=== PATIENT | female | born 1975 | race Two or more races ===

== ENCOUNTER 2022-11-18 14:58 | Emergency (ER) | payer MEDICAID ==
[2022-11-18 15:05] VITALS: BP 138/87; PULSE 115; RESP 20; TEMP 98
[2022-11-18] MEDS ORDERED: DEXAMETHASONE SOD PHOSPHATE 4 MG/ML 1 ML VIAL IM STA (15:34)
[2022-11-18] MEDS ORDERED: DOXYCYCLINE 100 MG CAP PO STA (15:34)
--- NOTE | 2022-11-18 15:37 | ED ---
General Adult HPI - General Chief complaint: Upper Respiratory Infection Stated complaint: ENT Time Seen by Provider: 11/18/22 15:18 Source: patient, RN notes reviewed, old records reviewed Mode of arrival: ambulatory Limitations: no limitations - History of Present Illness Initial comments: Patient is a 47-year-old female with history of chronic sinus infections presents emergency department concern for another sinus infection. Has been having symptoms for 3 weeks. Has left-sided facial fullness, subjective intermittent fevers, ear pain, tooth pain over the left side of her face. Has some nasal discharge as well. Denies sore throat. Denies cough. Denies chest pain. Denies abdominal pain, nausea, vomiting. Is seeking therapy as she typic ally requires antibiotics when it gets like this she states. His no other acute complaints at this time. - Related Data Previous Rx's Medication Instructions Recorded Doxycycline Hyclate 100 mg PO BID 10 Days #20 cap 11/18/22 Allergies Allergy/AdvReac Type Severity Reaction Status Date / Time codeine Allergy Rash/Hives Verified 11/18/22 15:03 Latex, Natural Rubber Allergy Anaphylaxis Verified 11/18/22 15:03 Penicillins Allergy Anaphylaxis Verified 11/18/22 15:03 Review of Systems ROS Statement: Those systems with pertinent positive or pertinent negative responses have been documented in the HPI. Review of Systems: CONST: Denies fever EYES: Denies blurry vision ENT: Endorses nasal congestion C/V: Denies Chest pain RESP: Denies shortness of breath GI: Denies abdominal pain : Denies dysuria SKIN: Denies rash. MSK: Denies joint pain. NEURO: Denies headache ROS Other: All systems not noted in ROS Statement are negative. 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 HEAD: Normal with no signs of head trauma. EYES: EOMI. PERRLA, conjunctiva normal, pupils 3 mm and equal bilaterally. ENT: Hearing grossly intact. Minimal sinus symptoms to palpation of the left maxilla sinus. RESPIRATORY: No respiratory distress. Clear breath sounds bilaterally. C/V: Regular rate and rhythm. ABD: Abdomen is nondistended. EXT: No obvious deformity. SKIN: No rashes or lesions observed on exposed skin. NEURO: Alert and oriented. Limitations: no limitations Course Vital Signs 11/18/22 14:59 Temperature 98.0 F Pulse Rate 115 H Respiratory 20 Rate Blood Pressure 138/87 O2 Sat by Pulse 97 Oximetry Medical Decision Making - Medical Decision Making Was pt. sent in by a medical professional or institution (, TRAE, DRAPERY ESTIMATOR, urgent care, hospital, or senior care...) When possible be specific @ -No Did you speak to anyone other than the patient for history (EMS, parent, family, police, friend...)? What history was obtained from this source @ -No Did you review nursing and triage notes (agree or disagree)? Why? @ -I reviewed and agree with nursing and triage notes Were old charts reviewed (outside hosp., previous admission, EMS record, old EKG, old radiological studies, urgent care reports/EKG's, senior care records)? Report findings @ -No old charts were reviewed Differential Diagnosis (chest pain, altered mental status, abdominal pain women, abdominal pain men, vaginal bleeding, weakness, fever, dyspnea, syncope, headache, dizziness, GI bleed, back pain, seizure, CVA, palpatations, mental health, musculoskeletal)? @ -Sinus infection, viral URI, this list is not all inclusive. EKG interpreted by me (3pts min.). @ -None done X-rays interpreted by me (1pt min.). @ -None done CT interpreted by me (1pt min.). @ -None done U/S interpreted by me (1pt. min.). @ -None done What testing was considered but not performed or refused? (CT, X-rays, U/S, labs)? Why? @ -I offered chest x-ray, however patient is having no cough or chest discomfort. She refuses at this time. What meds were considered but not given or refused? Why? @ -None Did you discuss the management of the patient with other professionals (professionals i.e. TRAE Mcdowell, DRAPERY ESTIMATOR, lab, RT, psych nurse, elementary school social worker, plate glass grinder, teacher, [employer] revenue officer, case technician)? Give summary @ -No Was smoking cessation discussed for >3mins.? @ -No Was critical care preformed (if so, how long)? @ -No Were there social determinants of health that impacted care today? How? (Homelessness, low income, unemployed, alcoholism, drug addiction, transportation, low edu. Level, literacy, decrease access to med. care, shelter, rehab)? @ -No Was there de-escalation of care discussed even if they declined (Discuss DNR or withdrawal of care, Hospice)? DNR status @ -No What co-morbidities impacted this encounter? (DM, HTN, Smoking, COPD, CAD, Cancer, CVA, ARF, Chemo, Hep., AIDS, mental health diagnosis, sleep apnea, morbid obesity)? @ -None Was patient admitted / discharged? Hospital course, mention meds given and route, prescriptions, significant lab abnormalities, going to OR and other pertinent info. @ -Based on the patient's presentation and physical exam, appears she is having a sinus infection. 3 weeks of symptoms. I did offer Covid testing as well as chest x-ray however patient declines at this time. We will start the patient on oral antibiotics for a sinus infection, doxycycline. She also receive a one- time dose of Decadron here in the department. She was in agreement this plan. Vital signs otherwise are within acceptable limits. She was discharged home at this time. Strict return precautions discussed. I will provide the patient with a prescription for doxycycline. I instructed the patient to follow up with their PCP in the next 1-3 days. I provided contact information for follow up with ENT. I explained that the patient should return to the emergency department if they experience any worsening symptoms. Strict return precautions were discussed with the patient. The patient expressed understanding of these instructions. I answered all questions that the patient had. The patient was discharged home in good condition with their prescriptions and follow up information. Undiagnosed new problem with uncertain prognosis? @ -No Drug Therapy requiring intensive monitoring for toxicity (Heparin, Nitro, Insulin, Cardizem)? @ -No Were any procedures done? @ -No Diagnosis/symptom? @ -Sinus infection Acute, or Chronic, or Acute on Chronic? @ -Acute Uncomplicated (without systemic symptoms) or Complicated (systemic symptoms)? @ -Uncomplicated Side effects of treatment? @ -No Exacerbation, Progression, or Severe Exacerbation? @ -No Poses a threat to life or bodily function? How? (Chest pain, USA, MS, pneumonia, PE, COPD, DKA, ARF, appy, cholecystitis, CVA, Diverticulitis, Homicidal, Suicidal, threat to staff... and all critical care pts) @ -No Disposition Clinical Impression: Sinusitis Disposition: HOME SELF-CARE Condition: Good Instructions (If sedation given, give patient instructions): Sinusitis (ED) Prescriptions: Doxycycline Hyclate 100 mg PO BID 10 Days #20 cap Is patient prescribed a controlled substance at d/c from ED?: No Referrals: None,Stated [Primary Care Provider] - 1-2 days Noé Ramsay DO [Doctor of Osteopathic Medicine] - 1-2 days Time of Disposition: 15:35
== END 2022-11-18 15:57 | disposition home or self-care (01) ==
LOC: EC 14:58
DX: J32.9 Chronic sinusitis, unspecified (principal); Z87.891 Personal history of nicotine dependence; Z88.5 Allergy status to narcotic agent; Z88.0 Allergy status to penicillin; Z91.040 Latex allergy status
CPT/HCPCS: 99283; 96372; J1100

== ENCOUNTER 2022-12-16 14:09 | Emergency (ER) | payer OTHER, MEDICAID ==
[2022-12-16 14:22] VITALS: RESP 18
[2022-12-16] MEDS ORDERED: KETOROLAC 15 MG/ML 1 ML VIAL IM STA (14:33)
[2022-12-16] MEDS ORDERED: IBUPROFEN 600 MG STARTER PACK 4 TAB BTL PO STA (14:41)
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
[2022-12-16 16:36] VITALS: BP 153/94; PULSE 89; TEMP 98
== END 2022-12-16 16:36 | disposition home or self-care (01) ==
LOC: EC 14:09
DX: S61.051A Open bite of right thumb without damage to nail, initial encounter (principal); Z87.891 Personal history of nicotine dependence; Z88.0 Allergy status to penicillin; Z88.5 Allergy status to narcotic agent; Z91.040 Latex allergy status; Y04.8XXA Assault by other bodily force, initial encounter
CPT/HCPCS: 72125; 70450; 99284; 96372; J1885

== ENCOUNTER 2023-01-07 17:58 | Emergency (ER) | payer MEDICAID, OTHER ==
--- NOTE | 2023-01-07 18:34 | ED ---
Female Urogenital HPI - General Source: patient Mode of arrival: ambulatory Limitations: no limitations <Moises Coronado - Last Filed: 01/07/23 18:34> - History of Present Illness MD Complaint: other Onset/Timin -: hour(s) Location: RLQ Radiation: L flank, R flank Severity: severe Quality: aching Consistency: constant Improves with: none Worsens with: none Associated Symptoms: nausea/vomiting, fever/chills, loss of appetite <Carlos Youssef - Last Filed: 01/08/23 09:00> - General Stated complaint: UTI Time Seen by Provider: 01/07/23 18:34 - History of Present Illness Initial comments: 47-year-old female presenting with chief complaint of right-sided flank pain which wraps around the abdomen. Admits to dysuria and difficulty urinating. (Moises Coronado) This patient is 47-year-old woman presenting with lower abdominal pain. She states it's probably greater on the right side and also goes to her back. She states that she's had similar symptoms related to endometriosis, however this is more severe. She is also had pain in that location sometimes associated with kidney infection. She gives history of horseshoe kidney. She has not had definite fever though the pain has been intense enough that she has broken into a sweat. She has had some associated nausea. She states there may be some urinary hesitation. No hematuria. (Carlos Youssef) - Related Data Home Medications Medication Instructions Recorded Confirmed LORazepam [Ativan] 0.5 mg PO DAILY 12/16/22 12/16/22 QUEtiapine FUMARATE [SEROquel] 25 mg PO DAILY 12/16/22 12/16/22 Previous Rx's Medication Instructions Recorded Moxifloxacin HCl [Avelox] 400 mg PO DAILY 7 Days #7 tab 12/16/22 Ondansetron Odt [Zofran ODT] 4 mg PO Q8HR PRN #10 tab 01/08/23 traMADol HCl [Ultram] 50 mg PO Q6H PRN #20 tab 01/08/23 Allergies Allergy/AdvReac Type Severity Reaction Status Date / Time codeine Allergy Rash/Hives Verified 01/07/23 18:35 Latex, Natural Rubber Allergy Anaphylaxis Verified 01/07/23 18:35 Penicillins Allergy Anaphylaxis Verified 01/07/23 18:35 Review of Systems ROS Other: All systems not noted in ROS Statement are negative. <Moises Coronado - Last Filed: 01/07/23 18:34> ROS Other: All systems not noted in ROS Statement are negative. Constitutional: Reports: chills Respiratory: Denies: cough, dyspnea Cardiovascular: Denies: chest pain, palpitations, edema, syncope Gastrointestinal: Reports: abdominal pain, nausea, vomiting. Denies: diarrhea, constipation, melena, hematochezia Genitourinary: Reports: frequency. Denies: dysuria, hematuria Musculoskeletal: Reports: back pain Skin: Denies: rash Neurological: Denies: headache, weakness, numbness <Carlos Youssef - Last Filed: 01/08/23 09:00> ROS Statement: Those systems with pertinent positive or pertinent negative responses have been documented in the HPI. 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 History of Any Multi-Drug Resistant Organisms: None Reported Additional Past Surgical History / Comment(s): kidney surgery Past Psychological History: No Psychological Hx Reported Smoking Status: Former smoker Past Alcohol Use History: None Reported Past Drug Use History: None Reported <CoronadoBarbiecarla - Last Filed: 01/07/23 18:34> General Exam <Moises Coronado - Last Filed: 01/07/23 18:34> General appearance: alert, in no apparent distress Head exam: Present: atraumatic, normocephalic Eye exam: Present: normal appearance. Absent: scleral icterus, conjunctival injection Neck exam: Present: normal inspection Respiratory exam: Present: normal lung sounds bilaterally. Absent: respiratory distress, wheezes, rales, rhonchi, stridor Cardiovascular Exam: Present: regular rate, normal rhythm, normal heart sounds. Absent: systolic murmur, diastolic murmur, rubs, gallop GI/Abdominal exam: Present: soft, tenderness. Absent: distended, guarding, rebound, rigid, mass, pulsatile mass, hernia Extremities exam: Present: normal inspection, normal capillary refill. Absent: pedal edema, calf tenderness Back exam: Present: normal inspection, CVA tenderness (R) Neurological exam: Present: alert Skin exam: Present: warm, dry, intact, normal color, diaphoretic. Absent: rash <Carlos Youssef - Last Filed: 01/08/23 09:00> - General Exam Comments Initial Comments: Visual Physical Exam Vital signs reviewed General: Well-appearing, nontoxic, no acute distress. Head: Normocephalic, atraumatic Eyes: PERRLA, EOMI ENT: Airway patent Chest: Nonlabored breathing Skin: No visual rash, normal skin tone Neuro: Alert and oriented 3 Musculoskeletal: No gross abnormalities (Moises Coronado) Course Vital Signs 01/07/23 01/08/23 18:32 01:45 Temperature 98.4 F Pulse Rate 109 H 84 Respiratory 20 16 Rate Blood Pressure 175/88 134/85 O2 Sat by Pulse 98 98 Oximetry Medical Decision Making - Lab Data Result diagrams: 01/07/23 20:22 01/07/23 20:22 <Carlos Youssef - Last Filed: 01/08/23 09:00> - Medical Decision Making This patient's 47-year-old woman here with lower abdominal pain radiating to the back. The workup not revealing definite etiology of the pain. The pain has improved with treatment here and she would like to go home at this point. We did discuss appropriate follow-up and further care as well as return parameters. Computed tomography scan of the abdomen and pelvis does reveal there is a horseshoe kidney present. There is no free air or obstruction. No kidney stone definitely observed. Was pt. sent in by a medical professional or institution ([facility], CLINICAL AUDIOLOGIST, urgent care, hospital, or correction...) When possible be specific @ -[No] Did you speak to anyone other than the patient for history (EMS, parent, family, police, friend...)? What history was obtained from this source @ -[The patient's also gave some history Did you review nursing and triage notes (agree or disagree)? Why? @ -[I reviewed and agree with nursing and triage notes] Were old charts reviewed (outside hosp., previous admission, EMS record, old EKG, old radiological studies, urgent care reports/EKG's, correction records)? Report findings @ -[No old charts were reviewed] Differential Diagnosis (chest pain, altered mental status, abdominal pain women, abdominal pain men, vaginal bleeding, weakness, fever, dyspnea, syncope, headache, dizziness, GI bleed, back pain, seizure, CVA, palpatations, mental health, musculoskeletal)? @ -[Differential Abdominal Pain Women: Appendicitis, Cholecystitis, diverticulosis, ischemic bowel, pancreatitis, hepatitis, UTI, gastroenteritis, AAA, incarcerated hernia, bowel obstruction, constipation, inflammatory bowel, hepatitis, peptic ulcer disease, splenic infarction, perforated viscus, vulvitis, ovarian torsion, PID, kidney stone, placenta abruption, this is not meant to be an all-inclusive list EKG interpreted by me (3pts min.). @ -[ X-rays interpreted by me (1pt min.). @ -[None done] CT interpreted by me (1pt min.). @ -[I interpreted the computed tomography scan as above U/S interpreted by me (1pt. min.). @ -[Ultrasound by radiologist What testing was considered but not performed or refused? (CT, X-rays, U/S, labs)? Why? @ -[None] What meds were considered but not given or refused? Why? @ -[None] Did you discuss the management of the patient with other professionals (professionals i.e. , PA, CLINICAL AUDIOLOGIST, lab, RT, psych nurse, social service technician, supervisor of communications, teacher, accounting officer, caser)? Give summary @ -[No] Was smoking cessation discussed for >3mins.? @ -[No] Was critical care preformed (if so, how long)? @ -[No] Were there social determinants of health that impacted care today? How? (Homelessness, low income, unemployed, alcoholism, drug addiction, transportati on, low edu. Level, literacy, decrease access to med. care, snf, rehab)? @ -[No] Was there de-escalation of care discussed even if they declined (Discuss DNR or withdrawal of care, Hospice)? DNR status @ -[No] What co-morbidities impacted this encounter? (DM, HTN, Smoking, COPD, CAD, Cancer, CVA, ARF, Chemo, Hep., AIDS, mental health diagnosis, sleep apnea, morbid obesity)? @ -[History of horseshoe kidney and of endometriosis Was patient admitted / discharged? Hospital course, mention meds given and route, prescriptions, significant lab abnormalities, going to OR and other perti nent info. @ -[Patient is discharged with close follow-up and return parameters discussed Undiagnosed new problem with uncertain prognosis? @ -[No] Drug Therapy requiring intensive monitoring for toxicity (Heparin, Nitro, In sulin, Cardizem)? @ -[No] Were any procedures done? @ -[No] Diagnosis/symptom? @ -[Abdominal pain Acute, or Chronic, or Acute on Chronic? @ -[Acute Uncomplicated (without systemic symptoms) or Complicated (systemic symptoms)? @ -[Uncomplicated Side effects of treatment? @ -[No] Exacerbation, Progression, or Severe Exacerbation? @ -[No] Poses a threat to life or bodily function? How? (Chest pain, [place], [place], pneumonia, PE, COPD, DKA, ARF, appy, cholecystitis, CVA, Diverticulitis, Homicidal, Suicidal, threat to staff... and all critical care pts) @ -[No] (Carlos Youssef) - Lab Data Lab Results 01/07/23 01/07/23 01/07/23 Range/Units 18:41 19:52 20:22 WBC 8.1 (3.8-10.6) k/uL RBC 4.53 (3.80-5.40) m/uL Hgb 14.3 (11.4-16.0) gm/dL Hct 40.9 (34.0-46.0) % MCV 90.3 (80.0-100.0) fL MCH 31.6 (25.0-35.0) pg MCHC 35.0 (31.0-37.0) g/dL RDW 12.9 (11.5-15.5) % Plt Count 285 (150-450) k/uL MPV 8.1 Neutrophils % 53 % Lymphocytes % 40 % Monocytes % 4 % Eosinophils % 1 % Basophils % 1 % Neutrophils # 4.3 (1.3-7.7) k/uL Lymphocytes # 3.2 (1.0-4.8) k/uL Monocytes # 0.3 (0-1.0) k/uL Eosinophils # 0.1 (0-0.7) k/uL Basophils # 0.0 (0-0.2) k/uL Sodium (137-145) mmol/L Potassium (3.5-5.1) mmol/L Chloride (98-107) mmol/L Carbon Dioxide (22-30) mmol/L Anion Gap mmol/L BUN (7-17) mg/dL Creatinine (0.52-1.04) mg/dL Est GFR (CKD-EPI)AfAm (>60 ml/min/1.73 sqM) Est GFR (CKD-EPI)NonAf (>60 ml/min/1.73 sqM) Glucose (74-99) mg/dL Plasma Lactic Acid Kendrick (0.7-2.0) mmol/L Calcium (8.4-10.2) mg/dL Total Bilirubin (0.2-1.3) mg/dL AST (14-36) U/L ALT (4-34) U/L Alkaline Phosphatase (38-126) U/L Total Protein (6.3-8.2) g/dL Albumin (3.5-5.0) g/dL Urine Color Yellow Urine Appearance Cloudy H (Clear) Urine pH 6.0 (5.0-8.0) Ur Specific [place] 1.016 (1.001-1.035) Urine Protein Negative (Negative) Urine Glucose (UA) Negative (Negative) Urine Ketones Negative (Negative) Urine Blood Trace H (Negative) Urine Nitrite Negative (Negative) Urine Bilirubin Negative (Negative) Urine Urobilinogen <2.0 (<2.0) mg/dL Ur Leukocyte Esterase Negative (Negative) Urine RBC 6 H (0-5) /hpf Urine WBC 3 (0-5) /hpf Ur Squamous Epith Cells 8 H (0-4) /hpf Urine Mucus Rare H (None) /hpf Urine HCG, Qual Not Detected (Not Detectd) 01/07/23 01/07/23 Range/Units 20:22 20:22 WBC (3.8-10.6) k/uL RBC (3.80-5.40) m/uL Hgb (11.4-16.0) gm/dL Hct (34.0-46.0) % MCV (80.0-100.0) fL MCH (25.0-35.0) pg MCHC (31.0-37.0) g/dL RDW (11.5-15.5) % Plt Count (150-450) k/uL MPV Neutrophils % % Lymphocytes % % Monocytes % % Eosinophils % % Basophils % % Neutrophils # (1.3-7.7) k/uL Lymphocytes # (1.0-4.8) k/uL Monocytes # (0-1.0) k/uL Eosinophils # (0-0.7) k/uL Basophils # (0-0.2) k/uL Sodium 138 (137-145) mmol/L Potassium 4.0 (3.5-5.1) mmol/L Chloride 109 H (98-107) mmol/L Carbon Dioxide 20 L (22-30) mmol/L Anion Gap 9 mmol/L BUN 20 H (7-17) mg/dL Creatinine 1.18 H (0.52-1.04) mg/dL Est GFR (CKD-EPI)AfAm 63 (>60 ml/min/1.73 sqM) Est GFR (CKD-EPI)NonAf 55 (>60 ml/min/1.73 sqM) Glucose 100 H (74-99) mg/dL Plasma Lactic Acid Kendrick 0.8 (0.7-2.0) mmol/L Calcium 8.9 (8.4-10.2) mg/dL Total Bilirubin 0.4 (0.2-1.3) mg/dL AST 23 (14-36) U/L ALT 15 (4-34) U/L Alkaline Phosphatase 60 (38-126) U/L Total Protein 7.1 (6.3-8.2) g/dL Albumin 4.2 (3.5-5.0) g/dL Urine Color Urine Appearance (Clear) Urine pH (5.0-8.0) Ur Specific [place] (1.001-1.035) Urine Protein (Negative) Urine Glucose (UA) (Negative) Urine Ketones (Negative) Urine Blood (Negative) Urine Nitrite (Negative) Urine Bilirubin (Negative) Urine Urobilinogen (<2.0) mg/dL Ur Leukocyte Esterase (Negative) Urine RBC (0-5) /hpf Urine WBC (0-5) /hpf Ur Squamous Epith Cells (0-4) /hpf Urine Mucus (None) /hpf Urine HCG, Qual (Not Detectd) Disposition <Moises Coronado - Last Filed: 01/07/23 18:34> Is patient prescribed a controlled substance at d/c from ED?: No <Carlos Youssef - Last Filed: 01/08/23 09:00> Clinical Impression: Abdominal pain Disposition: HOME SELF-CARE Condition: Good Instructions (If sedation given, give patient instructions): Abdominal Pain (ED) Prescriptions: traMADol HCl [Ultram] 50 mg PO Q6H PRN #20 tab PRN Reason: Pain Ondansetron Odt [Zofran ODT] 4 mg PO Q8HR PRN #10 tab PRN Reason: Nausea Referrals: None,Stated [Primary Care Provider] - 1-2 days
[2023-01-07 18:35] VITALS: TEMP 98.4
[2023-01-07] MEDS ORDERED: diphenhydrAMINE 50 MG/ML 1 ML VIAL IVP STA (19:43)
[2023-01-07] MEDS ORDERED: HYDROmorphone 1 MG/ML 1 ML SYRINGE IVP STA ×2 (19:43→22:18)
[2023-01-07] MEDS ORDERED: ONDANSETRON 4 MG/2 ML VIAL IVP STA (19:43)
--- NOTE | 2023-01-07 19:44 | CT ---
EXAMINATION TYPE: CT abdomen pelvis wo con DATE OF EXAM: 01/07/2023 HISTORY: right flank pain h/o horse shoe kidney and renal disease CT DLP: 500.4 mGycm. Automated Exposure Control for Dose Reduction was Utilized. TECHNIQUE: CT scan of the abdomen and pelvis is performed without oral or IV contrast. COMPARISON: None FINDINGS: LUNG BASES: No acute process. LIVER/GB: No significant abnormality is appreciated. PANCREAS: No significant abnormality is seen. SPLEEN: No significant abnormality is seen. ADRENALS: No significant abnormality is seen. KIDNEYS: There is no hydronephrosis or hydroureter. No calcifications in the kidneys or ureters or bl adder. Horseshoe kidney noted. BOWEL: No significant abnormality is seen. PELVIC VISCERA: No gross abnormality seen. LYMPH NODES: No greater than 1cm abdominal or pelvic lymph nodes are appreciated. OSSEOUS STRUCTURES: No significant abnormality is seen. Limitation of the study: Without IV contrast there is limited C2 sensitivity for focal visceral lesio ns, intraluminal filling defects, and vascular pathology. IMPRESSION: No acute process, CT abdomen pelvis without contrast.
[2023-01-07] MEDS ORDERED: SODIUM CHLORIDE 0.9% 1,000 ML IV STA (19:45)
[2023-01-07] MEDS ORDERED: SODIUM CHLORIDE 0.9% 1,000 ML IV ONE (19:45)
[2023-01-07] MEDS ORDERED: SODIUM CHLORIDE 0.9% 500 ML 500 ML IV STA (19:45)
[2023-01-07 20:12] LABS: Appearance,Urine Cloudy (Clear); Bilirubin,Urine Negative (Negative); Blood,Urine Trace (Negative); Color,Urine Yellow; Glucose,Urine (UA) Negative (Negative); Ketones,Urine Negative (Negative); Leukocyte Esterase,Urine Negative (Negative); Mucus,Urine Rare /hpf; Nitrite,Urine Negative (Negative); Protein,Urine Negative (Negative); RBC,Urine 6 /hpf (0-5); Specific Gravity,Urine 1.016 (1.001-1.035); Squamous Epithelial Cell,Urine 8 /hpf (0-4); Urobilinogen,Urine <2.0 mg/dL (<2.0); WBC,Urine 3 /hpf (0-5)
[2023-01-07 20:45] LABS: ALT 15 U/L (4-34); AST 23 U/L (14-36); African American GFR (CKD) 63 (>60 ml/min/1.73 sqM); Albumin 4.2 g/dL (3.5-5.0); Alkaline Phosphatase 60 U/L (38-126); Anion Gap 9 mmol/L; Blood Urea Nitrogen 20 mg/dL (7-17); Calcium 8.9 mg/dL (8.4-10.2); Carbon Dioxide 20 mmol/L (22-30); Chloride 109 mmol/L (98-107); Glucose 100 mg/dL (74-99); Non-African American GFR(CKD) 55 (>60 ml/min/1.73 sqM); Sodium 138 mmol/L (137-145); Total Bilirubin 0.4 mg/dL (0.2-1.3); Total Protein 7.1 g/dL (6.3-8.2)
[2023-01-07 20:48] LABS: Basophils % (A) 1 %; Eosinophils # (A) 0.1 k/uL (0-0.7); Eosinophils % (A) 1 %; HCT 40.9 % (34.0-46.0); HGB 14.3 gm/dL (11.4-16.0); Lymphocytes # (A) 3.2 k/uL (1.0-4.8); Lymphocytes % (A) 40 %; MCH 31.6 pg (25.0-35.0); MCV 90.3 fL (80.0-100.0); Mean Platelet Volume 8.1; Monocytes # (A) 0.3 k/uL (0-1.0); Monocytes % (A) 4 %; Neutrophils # (A) 4.3 k/uL (1.3-7.7); Neutrophils % (A) 53 %; Platelet Count 285 k/uL (150-450); RBC 4.53 m/uL (3.80-5.40); RDW 12.9 % (11.5-15.5); WBC 8.1 k/uL (3.8-10.6)
--- NOTE | 2023-01-08 01:50 | US ---
EXAM: US Pelvis Transvaginal CLINICAL HISTORY: ITS.REASON US Reason: attention RLQ, R/O torsion TECHNIQUE: Real-time transvaginal pelvic ultrasound with image documentation. Transvaginal imaging was used for better evaluation of the endometrium and adnexa. COMPARISON: No relevant prior studies available. FINDINGS: Uterus/cervix: Endometrial stripe measures 13 mm. Uterus measures 8.5 x 5.9 x 4.6 cm. Nabothian cysts measuring up to 1.0 cm. No myometrial mass. Right ovary: Right ovary measures 2.9 x 2.6 x 1.9 cm. Normal blood flow. Left ovary: Left ovary measures 2.5 x 2.0 x 1.4 cm. Normal blood flow. Free fluid: No free fluid. Bladder: Empty bladder which cannot be evaluated with this probe. IMPRESSION: Unremarkable pelvic ultrasound.
[2023-01-08] MEDS ORDERED: ONDANSETRON 4 MG ODT STARTER PACK 2 TAB BTL PO STA (01:58)
[2023-01-08] MEDS ORDERED: traMADol 50 MG STARTER PACK 3 TAB BTL PO STA (01:58)
[2023-01-08] MEDS ORDERED: PEG 3350 (236 GM/BTL) + LYTES 4,000 ML BOTTLE PO ONE (02:00)
[2023-01-08 02:17] VITALS: BP 134/85; PULSE 84; RESP 16
== END 2023-01-08 01:45 | disposition home or self-care (01) ==
LOC: EC 17:58
DX: R10.31 Right lower quadrant pain (principal); Z87.891 Personal history of nicotine dependence; Z88.0 Allergy status to penicillin; Z91.040 Latex allergy status; Z88.5 Allergy status to narcotic agent
CPT/HCPCS: 36415; 80053; 83605; 85025; 81001; 81025; 87040; 93975; 76830; 74176; 99284; 96365; 96376; 96375 ×3; 96361; J1200; J2405; J0696; J1170; S0119

== ENCOUNTER → 2023-04-05 | Outpatient (CLI) | payer MEDICAID ==
--- NOTE | 2023-04-06 15:36 | MM ---
Reason for Exam: Screening (asymptomatic). Baseline mammogram. Patient History: Menarche at age 18. Patient has no children. Last menstrual period: 03/19/2023 Risk Values: Laura 5 year model risk: 0.9%. NCI Lifetime model risk: 9.3%. Prior Study Comparison: Patient's first Mammogram. No prior studies available for comparison. Tissue Density: The breast tissue is extremely dense which could obscure a lesion on mammography. Findings: Analyzed By CAD. Pattern appears symmetrical. No suspicious groups of microcalcifications, spiculated or lobular masses, architectural distortion or other secondary signs of malignancy are mammographically apparent. Overall Assessment: Benign, BI-RAD 2 Management: Screening Mammogram of both breasts in 1 year. A negative mammogram report should not preclude additional follow up of suspicious palpable abnormalities. Patient should continue monthly self breast exam. A clinical breast exam by your physician is recommended on an annual basis and results should be correlated with mammographic findings. Electronically signed and approved by: Slick Caldera D.O. Radiologis
== END | disposition home or self-care (01) ==
LOC: RADMAMWWP 14:56
PROVIDERS: ATTEND Internal Medicine
DX: Z12.31 Encounter for screening mammogram for malignant neoplasm of breast (principal)
CPT/HCPCS: 77063; 77067

== ENCOUNTER 2023-04-23 08:59 | Emergency (ER) | payer MEDICAID ==
[2023-04-23 09:06] VITALS: TEMP 98.6
[2023-04-23] MEDS ORDERED: methylPREDNISolone SOD SUCCI 125 MG/2 ML VIAL IV STA (09:15)
[2023-04-23] MEDS ORDERED: IPRATROPIUM-ALBUTEROL 3 ML NEB INHALATION STA (09:15)
[2023-04-23] MEDS ORDERED: MAGNESIUM SULFATE-D5W PMX 1 GM in DEXTROSE/WATER 1 100ML.BAG IVPB ONE (09:15)
[2023-04-23 09:36] LABS: Basophils # (A) 0.1 k/uL (0-0.2); Basophils % (A) 0 %; Eosinophils # (A) 0.1 k/uL (0-0.7); Eosinophils % (A) 1 %; HCT 43.7 % (34.0-46.0); HGB 15.1 gm/dL (11.4-16.0); Lymphocytes # (A) 6.6 k/uL (1.0-4.8); Lymphocytes % (A) 38 %; MCH 30.9 pg (25.0-35.0); MCHC 34.5 g/dL (31.0-37.0); MCV 89.4 fL (80.0-100.0); Monocytes # (A) 0.7 k/uL (0-1.0); Monocytes % (A) 4 %; Neutrophils # (A) 9.8 k/uL (1.3-7.7); Neutrophils % (A) 56 %; Platelet Count 368 k/uL (150-450); RBC 4.88 m/uL (3.80-5.40); RDW 12.2 % (11.5-15.5); WBC 17.4 k/uL (3.8-10.6)
[2023-04-23 09:46] LABS: African American GFR (CKD) 85 (>60 ml/min/1.73 sqM); Anion Gap 14 mmol/L; Blood Urea Nitrogen 22 mg/dL (7-17); Calcium 9.6 mg/dL (8.4-10.2); Carbon Dioxide 18 mmol/L (22-30); Chloride 106 mmol/L (98-107); Glucose 100 mg/dL (74-99); Magnesium 1.9 mg/dL (1.6-2.3); Non-African American GFR(CKD) 74 (>60 ml/min/1.73 sqM); Sodium 138 mmol/L (137-145)
--- NOTE | 2023-04-23 10:07 | XR ---
EXAMINATION TYPE: XR chest 2V DATE OF EXAM: 04/23/2023 COMPARISON: None HISTORY: 47-year-old female with cough TECHNIQUE: PA and lateral views FINDINGS: The cardiomediastinal silhouette, aorta, and pulmonary vasculature are within normal limits. Hazy kary g densities relating to overlying soft tissue. Lungs and pleural spaces are clear. IMPRESSION: No acute cardiopulmonary process.
--- NOTE | 2023-04-23 10:07 | ED ---
General Adult HPI - General Chief complaint: Shortness of Breath Stated complaint: Cough, SHANNON Time Seen by Provider: 04/23/23 09:04 Source: patient, RN notes reviewed Mode of arrival: ambulatory Limitations: no limitations - History of Present Illness Initial comments: Patient 47-year-old female significant past medical history for asthma, presenting to the emergency room today with a chief complaint of cough and congestion over the last week. Patient does admit that she was on steroids, Cipro for 5 days. She states that she finished his medications yesterday. She does admit that she's been doing appear AT home. She states she did treatment prior to arrival. Does admit that she still feeling short of breath. Patient states that some of the symptoms of the cough and congestion improved but still feels very wheezy and short of breath. Patient denies any other complaints or any other symptoms. Denies any control use. Denies any recent travel, leg pain or swelling.Patient denies any chest pain, back pain, abdominal pain, nausea or vomiting, numbness or tingling, headaches or visual changes, or any other complaints. - Related Data Home Medications Medication Instructions Recorded Confirmed LORazepam [Ativan] 0.5 mg PO DAILY 12/16/22 12/16/22 QUEtiapine FUMARATE [SEROquel] 25 mg PO DAILY 12/16/22 12/16/22 Previous Rx's Medication Instructions Recorded Moxifloxacin HCl [Avelox] 400 mg PO DAILY 7 Days #7 tab 12/16/22 Ondansetron Odt [Zofran ODT] 4 mg PO Q8HR PRN #10 tab 01/08/23 traMADol HCl [Ultram] 50 mg PO Q6H PRN #20 tab 01/08/23 predniSONE [Deltasone] 20 mg PO BID 5 Days #10 tab 04/23/23 Allergies Allergy/AdvReac Type Severity Reaction Status Date / Time codeine Allergy Rash/Hives Verified 04/23/23 09:03 Latex, Natural Rubber Allergy Anaphylaxis Verified 04/23/23 09:03 Penicillins Allergy Anaphylaxis Verified 04/23/23 09:03 Review of Systems ROS Statement: Those systems with pertinent positive or pertinent negative responses have been documented in the HPI. ROS Other: All systems not noted in ROS Statement are negative. Past Medical History Past Medical History: Asthma, Renal Disease Additional Past Medical History / Comment(s): horse shoe kidney History of Any Multi-Drug Resistant Organisms: None Reported Additional Past Surgical History / Comment(s): kidney surgery Past Psychological History: No Psychological Hx Reported Smoking Status: Former smoker Past Alcohol Use History: None Reported Past Drug Use History: None Reported General Exam - General Exam Comments Initial Comments: General: The patient is awake and alert, in no distress, and does not appear acutely ill. Eye: Extra-ocular movements are intact. No nystagmus. There is normal conjunctiva bilaterally. No signs of icterus. Ears, nose, mouth and throat: There are moist mucous membranes and no oral lesions. Neck: The neck is supple, there is no tenderness or JVD. Cardiovascular: There is a regular rate and rhythm. No murmur, rub or gallop is appreciated. Respiratory: respirations are non-labored, breath sounds are equal. Bilateral expiratory wheeze. Musculoskeletal: Normal ROM, no tenderness. Neurological: A&O x 3. CN II-XII intact, There are no obvious motor or sensory deficits. Coordination appears grossly intact. Speech is normal. Skin: Skin is warm and dry and no rashes or lesions are noted. Psychiatric: Cooperative, appropriate mood & affect, normal judgment. Limitations: no limitations Course Vital Signs 04/23/23 04/23/23 09:00 09:56 Temperature 98.6 F Pulse Rate 149 H 104 H Respiratory 28 H 18 Rate Blood Pressure 148/83 136/99 O2 Sat by Pulse 97 94 L Oximetry Medical Decision Making - Medical Decision Making History was obtained from patient/Nurse/ Initial assessment and chief complaint: Cough, congestion, shortness of breath Chronic conditions affecting care: asthma Social determinants affecting care: None Differential diagnosis included, but not limited to: Pneumonia, asthma exacerbation, cough, pneumothorax Any imaging that may have been performed was also reviewed. I did an independent interpretation of the patient's imaging. My interpretation of chest x-ray was unremarkable. 47-year-old female presented to the emergency room today with chief complaint of cough and congestion over the last week. Patient does admit to recently finishing antibiotics of ciprofloxacin and prednisone. States on 60 mg and last dose was yesterday. Patient does admit that she's been doing albuterol treatments. Albuterol treatment prior to arrival. Patient was found be tachycardic at triage with a heart rate greater than 140. Patient did have an EKG showed sinus rhythm at 124. No other acute abnormalities. Patient denies any recent travel. No leg pain or swelling. Patient did have bilateral expiratory wheeze. Was given breathing treatment here in emergency room. Patient was given dose of steroids. Patient does admit to feeling better. Lung sounds are improved. The patient's heart rate improved currently in the 90s on reevaluation. Patient pulse ox was 96% on reevaluation patient's chest x-ray was reviewed shows no evidence of pneumonia. Options were discussed with patient about possible admission. She states she would rather be discharged. She states yesterday was at home that she can continue. Patient will be given a short prescription of 20 mg of prednisone twice a day for the next 3 days. Advised close follow-up and returning if any symptoms increase or worsen or for any other concerns. She states understanding and is here with his - Lab Data Result diagrams: 04/23/23 09:16 04/23/23 09:16 Lab Results 04/23/23 04/23/23 04/23/23 Range/Units 09:16 09:16 09:16 WBC 17.4 H (3.8-10.6) k/uL RBC 4.88 (3.80-5.40) m/uL Hgb 15.1 (11.4-16.0) gm/dL Hct 43.7 (34.0-46.0) % MCV 89.4 (80.0-100.0) fL MCH 30.9 (25.0-35.0) pg MCHC 34.5 (31.0-37.0) g/dL RDW 12.2 (11.5-15.5) % Plt Count 368 (150-450) k/uL MPV 8.0 Sodium 138 (137-145) mmol/L Potassium 4.0 (3.5-5.1) mmol/L Chloride 106 (98-107) mmol/L Carbon Dioxide 18 L (22-30) mmol/L Anion Gap 14 mmol/L BUN 22 H (7-17) mg/dL Creatinine 0.92 (0.52-1.04) mg/dL Est GFR (CKD-EPI)AfAm 85 (>60 ml/min/1.73 sqM) Est GFR (CKD-EPI)NonAf 74 (>60 ml/min/1.73 sqM) Glucose 100 H (74-99) mg/dL Calcium 9.6 (8.4-10.2) mg/dL Magnesium 1.9 (1.6-2.3) mg/dL Coronavirus (PCR) Not Detected (Not Detectd) Disposition Clinical Impression: Asthma exacerbation Disposition: HOME SELF-CARE Condition: Good Instructions (If sedation given, give patient instructions): Asthma (ED) Prescriptions: predniSONE [Deltasone] 20 mg PO BID 5 Days #10 tab Is patient prescribed a controlled substance at d/c from ED?: No Referrals: Willis Magana MD [Primary Care Provider] - 1-2 days Time of Disposition: 10:20
[2023-04-23 10:08] VITALS: RESP 18
[2023-04-23 10:20] LABS: RBC Morphology Normal
[2023-04-23 10:46] VITALS: BP 124/96; PULSE 98
== END 2023-04-23 10:38 | disposition home or self-care (01) ==
LOC: EC 08:59
DX: J45.901 Unspecified asthma with (acute) exacerbation (principal); R00.0 Tachycardia, unspecified; Z87.891 Personal history of nicotine dependence; Z20.822 Contact with and (suspected) exposure to COVID-19; Z88.0 Allergy status to penicillin; Z91.040 Latex allergy status; Z88.5 Allergy status to narcotic agent
CPT/HCPCS: 36415; 94640; 93005; 80048; 83735; 84484; 85025; 87635; 71046; 99285; 96365; 96375; J2930; J3475

== ENCOUNTER 2023-07-28 19:06 | Emergency (ER) | payer OTHER, MEDICAID ==
--- NOTE | 2023-07-28 21:07 | XR ---
EXAMINATION TYPE: XR lumbar spine 2 or 3V DATE OF EXAM: 07/28/2023 8:22 PM CLINICAL INDICATION:Female, 48 years old with history of fall; COMPARISON: None TECHNIQUE: XR lumbar spine 2 or 3V - Frontal, lateral and coned in L5-S1 lateral views of the spine. FINDINGS: No evidence of any acute osseous pathology. No evidence of loss of vertebral body height i s seen. There is normal alignment of the lumbar vertebral bodies. Mild scattered disc space narrowing . Multilevel marginal osteophyte formation throughout the visualized spine. There is facet joint arth ropathy throughout the spine. Scattered at least mild neural foraminal stenosis. IMPRESSION: 1. No acute fracture. 2. Mild multilevel disc degeneration.
--- NOTE | 2023-07-28 21:09 | XR ---
EXAMINATION TYPE: XR ribs LT w pa chest xray DATE OF EXAM: 07/28/2023 8:22 PM CLINICAL INDICATION:Female, 48 years old with history of fall; H COMPARISON: Same day radiographs TECHNIQUE: XR ribs LT w pa chest xray; Frontal and oblique views of the ribs with frontal chest radio graph. FINDINGS: The ribs have a normal appearance. No evidence of fracture. Overall, the lungs are clear. The cardiac silhouette is normal in size. The remaining osseous structures are intact. IMPRESSION: No acute osseous pathology.
[2023-07-28] MEDS ORDERED: ORPHENADRINE 30 MG/ML 2 ML VIAL IM STA (21:31)
--- NOTE | 2023-07-28 21:33 | ED ---
Back Pain HPI - General Chief Complaint: Back Pain/Injury Stated Complaint: [facility] Head Injury Back Injury Source: patient - History of Present Illness Initial Comments: 48-year-old female presenting with chief complaint of back pain. 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 She is now having left-sided rib and back pain. She has not taken any analgesiacs. No numbness or tingling. No difficulty breathing or chest pain. No hematuria. No abdominal pain. No loss of bowel or bladder control or saddle paresthesia. No blood thinners or loss of consciousness. - Related Data Home Medications Medication Instructions Recorded Confirmed LORazepam [Ativan] 0.5 mg PO DAILY 12/16/22 12/16/22 QUEtiapine FUMARATE [SEROquel] 25 mg PO DAILY 12/16/22 12/16/22 Previous Rx's Medication Instructions Recorded Moxifloxacin HCl [Avelox] 400 mg PO DAILY 7 Days #7 tab 12/16/22 Ondansetron Odt [Zofran ODT] 4 mg PO Q8HR PRN #10 tab 01/08/23 traMADol HCl [Ultram] 50 mg PO Q6H PRN #20 tab 01/08/23 predniSONE [Deltasone] 20 mg PO BID 5 Days #10 tab 04/23/23 Cyclobenzaprine [Flexeril] 10 mg PO TID PRN #15 tab 07/28/23 Allergies Allergy/AdvReac Type Severity Reaction Status Date / Time codeine Allergy Rash/Hives Verified 07/28/23 19:19 Latex, Natural Rubber Allergy Anaphylaxis Verified 07/28/23 19:19 Penicillins Allergy Anaphylaxis Verified 07/28/23 19:19 Review of Systems ROS Statement: Those systems with pertinent positive or pertinent negative responses have been documented in the HPI. ROS Other: All systems not noted in ROS Statement are negative. 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 Absent: respiratory distress, wheezes, rales, rhonchi, stridor Cardiovascular Exam: Present: regular rate, normal rhythm, normal heart sounds. Absent: systolic murmur, diastolic murmur, rubs, gallop, clicks Extremities exam: Present: normal inspection Back exam: Present: normal inspection, paraspinal tenderness Neurological exam: Present: alert, oriented X3, normal gait Psychiatric exam: Present: normal affect, normal mood Skin exam: Present: warm, dry Course Vital Signs 07/28/23 07/28/23 19:16 21:47 Temperature 98.2 F 98.1 F Pulse Rate 84 81 Respiratory 18 16 Rate Blood Pressure 142/71 140/69 O2 Sat by Pulse 96 98 Oximetry Medical Decision Making - Medical Decision Making Was pt. sent in by a medical professional or institution (, PA, PSYCH SPECIALIST, urgent care, hospital, or [facility]...) When possible be specific @ -No Did you speak to anyone other than the patient for history (EMS, parent, family, police, friend...)? What history was obtained from this source @ -No Did you review nursing and triage notes (agree or disagree)? Why? @ -I reviewed and agree with nursing and triage notes Were old charts reviewed (outside hosp., previous admission, EMS record, old EKG, old radiological studies, urgent care reports/EKG's, [facility] records)? Report findings @ -No old charts were reviewed Differential Diagnosis (chest pain, altered mental status, abdominal pain women, abdominal pain men, vaginal bleeding, weakness, fever, dyspnea, syncope, headache, dizziness, GI bleed, back pain, seizure, CVA, palpatations, mental health, musculoskeletal)? @ - MDM Differential Back Pain: Strain, zoster, cauda equina syndrome, epidural abscess, vertebral o steomyelitis, discitis, fracture, subluxation, disc herniation, DJD, spinal stenosis, dissection, AAA, pancreatitis, peptic ulcer disease, pyelonephritis, kidney stone this is not meant to be an all-inclusive list. EKG interpreted by me (3pts min.). @ -As above X-rays interpreted by me (1pt min.). @ -X-rays of the lumbar spine and left-sided ribs with chest x-ray show no acute osseous pathology. CT interpreted by me (1pt min.). @ -None done U/S interpreted by me (1pt. min.). @ -None done What testing was considered but not performed or refused? (CT, X-rays, U/S, labs)? Why? @ -None What meds were considered but not given or refused? Why? @ -None Did you discuss the management of the patient with other professionals (professionals i.e. , PA, PSYCH SPECIALIST, lab, RT, psych nurse, secondary social studies teacher, room service supervisor, teacher, district resource officer, onsite case manager)? Give summary @ -No Was smoking cessation discussed for >3mins.? @ -No Was critical care preformed (if so, how long)? @ -No Were there social determinants of health that impacted care today? How? (Homelessness, low income, unemployed, alcoholism, drug addiction, transportation, low edu. Level, literacy, decrease access to med. care, usp, rehab)? @ -No Was there de-escalation of care discussed even if they declined (Discuss DNR or withdrawal of care, Hospice)? DNR status @ -No What co-morbidities impacted this encounter? (DM, HTN, Smoking, COPD, CAD, Cancer, CVA, ARF, Chemo, Hep., AIDS, mental health diagnosis, sleep apnea, morbid obesity)? @ -None Was patient admitted / discharged? Hospital course, mention meds given and route, prescriptions, significant lab abnormalities, going to OR and other pertinent info. @ -48-year-old female presenting with chief complaint of back pain. Patient was at work today when she went to visit the chair that slipped out from underneath her. Pain is mainly on the left side. History and physical exam were conducted. Negative x-rays and alarm symptoms. Patient is educated on these findings and supportive management at home. Follow-up with PCP. Report back to ER with any new or worsening symptoms. Discussed return parameters and answered all questions. Patient conveyed verbal understanding and agreed to the plan. I discussed this case in detail with my attending Dr. Bob Undiagnosed new problem with uncertain prognosis? @ -No Drug Therapy requiring intensive monitoring for toxicity (Heparin, Nitro, Insulin, Cardizem)? @ -No Were any procedures done? @ -No Diagnosis/symptom? @ -Back strain Acute, or Chronic, or Acute on Chronic? @ -acute Uncomplicated (without systemic symptoms) or Complicated (systemic symptoms)? @ -Uncomplicated Side effects of treatment? @ -No Exacerbation, Progression, or Severe Exacerbation? @ -No Poses a threat to life or bodily function? How? (Chest pain, [place], [place], pneumonia, PE, COPD, DKA, ARF, appy, cholecystitis, CVA, Diverticulitis, Homicidal, Suicidal, threat to staff... and all critical care pts) @ -No Disposition Clinical Impression: Back strain Disposition: HOME SELF-CARE Condition: Good Instructions (If sedation given, give patient instructions): Acute Low Back Pain (ED), Flank Pain (ED) Additional Instructions: Follow-up with PCP. Report back to ER with any new or worsening symptoms. Take Tylenol as needed. Cyclobenzaprine may cause drowsiness, do not take before driving or operating heavy machinery Prescriptions: Cyclobenzaprine [Flexeril] 10 mg PO TID PRN #15 tab PRN Reason: Spasms Is patient prescribed a controlled substance at d/c from ED?: No Referrals: Willis Magana DO [Primary Care Provider] - 1-2 days Time of Disposition: 21:32
[2023-07-28 21:55] VITALS: BP 140/69; PULSE 81; RESP 16; TEMP 98.1
== END 2023-07-28 21:46 | disposition home or self-care (01) ==
LOC: EC 19:06
DX: S39.012A Strain of muscle, fascia and tendon of lower back, initial encounter (principal); J45.909 Unspecified asthma, uncomplicated; Z87.891 Personal history of nicotine dependence; Z88.0 Allergy status to penicillin; Z91.040 Latex allergy status; Z88.5 Allergy status to narcotic agent; X58.XXXA Exposure to other specified factors, initial encounter
CPT/HCPCS: 71101; 72100; 99283; 96372; J2360

== ENCOUNTER 2023-09-11 11:09 | Emergency (ER) | payer MEDICAID, OTHER ==
[2023-09-11] MEDS: ONDANSETRON 4 MG/2 ML VIAL IVP STA ×2 (11:26→12:58)
[2023-09-11] MEDS: HYDROmorphone 0.5 MG/0.5 ML SYRINGE IVP STA ×3 (11:27→15:08)
[2023-09-11] MEDS: SODIUM CHLORIDE 0.9% 1,000 ML IV STA (11:30)
[2023-09-11] MEDS: SODIUM CHLORIDE 0.9% 500 ML 500 ML IV STA (11:31)
[2023-09-11 11:35] VITALS: TEMP 99.1
[2023-09-11 11:45] LABS: Basophils % (A) 0 %; Eosinophils # (A) 0.1 k/uL (0-0.7); Eosinophils % (A) 1 %; HCT 40.1 % (34.0-46.0); HGB 13.8 gm/dL (11.4-16.0); Lymphocytes % (A) 13 %; MCH 30.1 pg (25.0-35.0); MCHC 34.3 g/dL (31.0-37.0); MCV 87.7 fL (80.0-100.0); Mean Platelet Volume 7.8; Monocytes # (A) 0.3 k/uL (0-1.0); Monocytes % (A) 4 %; Neutrophils # (A) 6.3 k/uL (1.3-7.7); Neutrophils % (A) 81 %; Platelet Count 279 k/uL (150-450); RBC 4.58 m/uL (3.80-5.40); RDW 12.4 % (11.5-15.5); WBC 7.8 k/uL (3.8-10.6)
[2023-09-11 11:57] LABS: ALT 20 U/L (4-34); AST 30 U/L (14-36); African American GFR (CKD) 73 (>60 ml/min/1.73 sqM); Albumin 4.7 g/dL (3.5-5.0); Alkaline Phosphatase 83 U/L (38-126); Anion Gap 11 mmol/L; Blood Urea Nitrogen 15 mg/dL (7-17); Calcium 9.2 mg/dL (8.4-10.2); Carbon Dioxide 17 mmol/L (22-30); Chloride 108 mmol/L (98-107); Glucose 114 mg/dL (74-99); Lipase 189 U/L (23-300); Non-African American GFR(CKD) 64 (>60 ml/min/1.73 sqM); Sodium 136 mmol/L (137-145); Total Bilirubin 0.5 mg/dL (0.2-1.3); Total Protein 7.7 g/dL (6.3-8.2)
--- NOTE | 2023-09-11 11:57 | CT ---
EXAMINATION TYPE: CT abdomen pelvis wo con CT DLP: 539 mGycm, Automated exposure control for dose reduction was used. DATE OF EXAM: 09/11/2023 11:52 AM COMPARISON: CT abdomen pelvis most recent from 01/07/2023 CLINICAL INDICATION:Female, 48 years old with history of flank pain; flank pain TECHNIQUE: Axial CT abdomen pelvis wo con;Sagittal and coronal reformats were created on a separate workstation. Contrast used: mL of , (none if empty) Oral contrast used: without Oral Contrast (none if empty) FINDINGS: LOWER CHEST: Unremarkable ABDOMEN LIVER: Unremarkable GALLBLADDER AND BILE DUCTS: Unremarkable. PANCREAS: Unremarkable. SPLEEN: Unremarkable. ADRENAL GLANDS: Unremarkable. KIDNEYS AND URETERS: No evidence of hydronephrosis or renal calculus. The ureters are unremarkable. Horseshoe kidneys. PELVIS BLADDER: Decompressed and grossly unremarkable. REPRODUCTIVE: Unremarkable. ABDOMEN & PELVIS STOMACH AND BOWEL: No evidence of bowel obstruction. The appendix appears normal. PERITONEUM/RETROPERITONEUM: No evidence of pneumoperitoneum or free fluid. VASCULATURE: No evidence of aortic aneurysm. MUSCULOSKELETAL: No acute osseous abnormalities LYMPH NODES: No gross evidence for lymphadenopathy. SOFT TISSUE/ABDOMINAL WALL: Unremarkable IMPRESSION: Horseshoe kidney without evidence for obstructive uropathy. No renal calculi visualized. No acute abd ominal process.
[2023-09-11 11:58] LABS: Potassium 4.5 mmol/L (3.5-5.1)
--- NOTE | 2023-09-11 12:44 | ED ---
Abdominal Pain HPI - General Chief Complaint: Abdominal Pain Stated Complaint: Abd Pain Time Seen by Provider: 09/11/23 11:16 Source: patient, RN notes reviewed Mode of arrival: ambulatory Limitations: no limitations - History of Present Illness Initial Comments: 48-year-old female presents emergency department chief complaint of flank pain. Patient states she feels like she has a kidney stone. She states she urinated and noticed some blood and states that she divider flank pain. She has a history sepsis, kidney stone, renal failure. Patient states she has a horseshoe kidney. Patient states he did not feel well earlier. Patient states that the makes pain feel better or worse. - Related Data Home Medications Medication Instructions Recorded Confirmed LORazepam [Ativan] 0.5 mg PO DAILY 12/16/22 12/16/22 QUEtiapine FUMARATE [SEROquel] 25 mg PO DAILY 12/16/22 12/16/22 Previous Rx's Medication Instructions Recorded Moxifloxacin HCl [Avelox] 400 mg PO DAILY 7 Days #7 tab 12/16/22 Ondansetron Odt [Zofran ODT] 4 mg PO Q8HR PRN #10 tab 01/08/23 traMADol HCl [Ultram] 50 mg PO Q6H PRN #20 tab 01/08/23 predniSONE [Deltasone] 20 mg PO BID 5 Days #10 tab 04/23/23 Cyclobenzaprine [Flexeril] 10 mg PO TID PRN #15 tab 07/28/23 Ciprofloxacin HCl [Cipro] 500 mg PO Q12HR #20 tablet 09/11/23 Ondansetron Odt [Zofran Odt] 4 mg PO Q8HR PRN #10 tab 09/11/23 Allergies Allergy/AdvReac Type Severity Reaction Status Date / Time codeine Allergy Rash/Hives Verified 09/11/23 11:13 Latex, Natural Rubber Allergy Anaphylaxis Verified 09/11/23 11:13 Penicillins Allergy Anaphylaxis Verified 09/11/23 11:13 Review of Systems ROS Statement: Those systems with pertinent positive or pertinent negative responses have been documented in the HPI. ROS Other: All systems not noted in ROS Statement are negative. 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 Absent: scleral icterus, conjunctival injection, periorbital swelling ENT exam: Present: normal exam, normal oropharynx, mucous membranes moist Neck exam: Present: normal inspection, full ROM. Absent: tenderness, meningismus, lymphadenopathy Respiratory exam: Present: normal lung sounds bilaterally. Absent: respiratory distress, wheezes, rales, rhonchi, stridor Cardiovascular Exam: Present: normal rhythm, tachycardia, normal heart sounds. Absent: systolic murmur, diastolic murmur, rubs, gallop, clicks GI/Abdominal exam: Present: soft, tenderness, normal bowel sounds. Absent: distended, guarding, rebound, rigid Back exam: Present: CVA tenderness (R). Absent: CVA tenderness (L) Course Vital Signs 09/11/23 09/11/23 11:10 15:05 Temperature 99.1 F Pulse Rate 121 H 110 H Respiratory 24 22 Rate Blood Pressure 160/87 185/81 O2 Sat by Pulse 98 99 Oximetry Medical Decision Making - Medical Decision Making Was pt. sent in by a medical professional or institution ([facility], DANCE DIRECTOR, urgent care, hospital, or halfway...) When possible be specific @ -[No] Did you speak to anyone other than the patient for history (EMS, parent, family, police, friend...)? What history was obtained from this source @ -[No] Did you review nursing and triage notes (agree or disagree)? Why? @ -[I reviewed and agree with nursing and triage notes] Were old charts reviewed (outside hosp., previous admission, EMS record, old EKG, old radiological studies, urgent care reports/EKG's, halfway records)? Report findings @ -[No old charts were reviewed] Differential Diagnosis (chest pain, altered mental status, abdominal pain women, abdominal pain men, vaginal bleeding, weakness, fever, dyspnea, syncope, headache, dizziness, GI bleed, back pain, seizure, CVA, palpatations, mental health, musculoskeletal)? @ -[Differential Abdominal Pain Women: Appendicitis, Cholecystitis, diverticulosis, ischemic bowel, pancreatitis, hepatitis, UTI, gastroenteritis, AAA, incarcerated hernia, bowel obstruction, constipation, inflammatory bowel, hepatitis, peptic ulcer disease, splenic infarction, perforated viscus, vulvitis, ovarian torsion, PID, kidney stone, placenta abruption, this is not meant to be an all-inclusive list EKG interpreted by me (3pts min.). @ -None X-rays interpreted by me (1pt min.). @ -[None done] CT interpreted by me (1pt min.). @ -CT abdomen pelvis showing no evidence of nephrolithiasis or hydronephrosis. Patient does have horseshoe kidney otherwise no other acute findings. U/S interpreted by me (1pt. min.). @ -[None done] What testing was considered but not performed or refused? (CT, X-rays, U/S, labs)? Why? @ -[None] What meds were considered but not given or refused? Why? @ -[None] Did you discuss the management of the patient with other professionals (professionals i.e. , PA, DANCE DIRECTOR, lab, RT, psych nurse, social service liaison, corporation lawyer, teacher, collection officer, case technician)? Give summary @ -[No] Was smoking cessation discussed for >3mins.? @ -[No] Was critical care preformed (if so, how long)? @ -[No] Were there social determinants of health that impacted care today? How? (Homelessness, low income, unemployed, alcoholism, drug addiction, transportation, low edu. Level, literacy, decrease access to med. care, senior care, rehab)? @ -[No] Was there de-escalation of care discussed even if they declined (Discuss DNR or withdrawal of care, Hospice)? DNR status @ -[No] What co-morbidities impacted this encounter? (DM, HTN, Smoking, COPD, CAD, Cancer, CVA, ARF, Chemo, Hep., AIDS, mental health diagnosis, sleep apnea, morbid obesity)? @ -[None] Was patient admitted / discharged? Hospital course, mention meds given and route, prescriptions, significant lab abnormalities, going to OR and other pertinent info. @ -Discharge patient is found to have right flank pain, evidence of UTI with notable nitrate positive urine, hematuria there is no stone evident. Patient is currently afebrile was given 2 g Rocephin with no complications she will be discharged on ciprofloxacin as she states she is tolerated this in the past. Patient provided analgesics will have close follow-up return parameters discussed. Undiagnosed new problem with uncertain prognosis? @ -[No] Drug Therapy requiring intensive monitoring for toxicity (Heparin, Nitro, Insulin, Cardizem)? @ -[No] Were any procedures done? @ -[No] Diagnosis/symptom? @ -[Pyelonephritis Acute, or Chronic, or Acute on Chronic? @ -[Acute Uncomplicated (without systemic symptoms) or Complicated (systemic symptoms)? @ -Complicated Side effects of treatment? @ -[No] Exacerbation, Progression, or Severe Exacerbation? @ -[No] Poses a threat to life or bodily function? How? (Chest pain, [place], [place], pneumonia, PE, COPD, DKA, ARF, appy, cholecystitis, CVA, Diverticulitis, Homicidal, Suicidal, threat to staff... and all critical care pts) @ -[Yes low risk pyelonephritis, sepsis - Lab Data Result diagrams: 09/11/23 11:23 09/11/23 11:23 Lab Results 09/11/23 09/11/23 09/11/23 Range/Units 11:23 11:23 11:23 WBC 7.8 (3.8-10.6) k/uL RBC 4.58 (3.80-5.40) m/uL Hgb 13.8 (11.4-16.0) gm/dL Hct 40.1 (34.0-46.0) % MCV 87.7 (80.0-100.0) fL MCH 30.1 (25.0-35.0) pg MCHC 34.3 (31.0-37.0) g/dL RDW 12.4 (11.5-15.5) % Plt Count 279 (150-450) k/uL MPV 7.8 Neutrophils % 81 % Lymphocytes % 13 % Monocytes % 4 % Eosinophils % 1 % Basophils % 0 % Neutrophils # 6.3 (1.3-7.7) k/uL Lymphocytes # 1.0 (1.0-4.8) k/uL Monocytes # 0.3 (0-1.0) k/uL Eosinophils # 0.1 (0-0.7) k/uL Basophils # 0.0 (0-0.2) k/uL Sodium 136 L (137-145) mmol/L Potassium 4.5 (3.5-5.1) mmol/L Chloride 108 H (98-107) mmol/L Carbon Dioxide 17 L (22-30) mmol/L Anion Gap 11 mmol/L BUN 15 (7-17) mg/dL Creatinine 1.04 (0.52-1.04) mg/dL Est GFR (CKD-EPI)AfAm 73 (>60 ml/min/1.73 sqM) Est GFR (CKD-EPI)NonAf 64 (>60 ml/min/1.73 sqM) Glucose 114 H (74-99) mg/dL Plasma Lactic Acid Kendrick (0.7-2.0) mmol/L Calcium 9.2 (8.4-10.2) mg/dL Total Bilirubin 0.5 (0.2-1.3) mg/dL AST 30 (14-36) U/L ALT 20 (4-34) U/L Alkaline Phosphatase 83 (38-126) U/L Total Protein 7.7 (6.3-8.2) g/dL Albumin 4.7 (3.5-5.0) g/dL Lipase 189 (23-300) U/L Urine Color Yellow Urine Appearance Clear (Clear) Urine pH 6.0 (5.0-8.0) Ur Specific Curtiss 1.015 (1.001-1.035) Urine Protein Trace H (Negative) Urine Glucose (UA) Negative (Negative) Urine Ketones Negative (Negative) Urine Blood Moderate H (Negative) Urine Nitrite Positive H (Negative) Urine Bilirubin Negative (Negative) Urine Urobilinogen <2.0 (<2.0) mg/dL Ur Leukocyte Esterase Negative (Negative) Urine RBC >182 H (0-5) /hpf Urine WBC 10 H (0-5) /hpf Ur Squamous Epith Cells 2 (0-4) /hpf Urine Bacteria Occasional H (None) /hpf Urine Mucus Rare H (None) /hpf 09/11/23 Range/Units 11:23 WBC (3.8-10.6) k/uL RBC (3.80-5.40) m/uL Hgb (11.4-16.0) gm/dL Hct (34.0-46.0) % MCV (80.0-100.0) fL MCH (25.0-35.0) pg MCHC (31.0-37.0) g/dL RDW (11.5-15.5) % Plt Count (150-450) k/uL MPV Neutrophils % % Lymphocytes % % Monocytes % % Eosinophils % % Basophils % % Neutrophils # (1.3-7.7) k/uL Lymphocytes # (1.0-4.8) k/uL Monocytes # (0-1.0) k/uL Eosinophils # (0-0.7) k/uL Basophils # (0-0.2) k/uL Sodium (137-145) mmol/L Potassium (3.5-5.1) mmol/L Chloride (98-107) mmol/L Carbon Dioxide (22-30) mmol/L Anion Gap mmol/L BUN (7-17) mg/dL Creatinine (0.52-1.04) mg/dL Est GFR (CKD-EPI)AfAm (>60 ml/min/1.73 sqM) Est GFR (CKD-EPI)NonAf (>60 ml/min/1.73 sqM) Glucose (74-99) mg/dL Plasma Lactic Acid Kendrick 1.1 (0.7-2.0) mmol/L Calcium (8.4-10.2) mg/dL Total Bilirubin (0.2-1.3) mg/dL AST (14-36) U/L ALT (4-34) U/L Alkaline Phosphatase (38-126) U/L Total Protein (6.3-8.2) g/dL Albumin (3.5-5.0) g/dL Lipase (23-300) U/L Urine Color Urine Appearance (Clear) Urine pH (5.0-8.0) Ur Specific Curtiss (1.001-1.035) Urine Protein (Negative) Urine Glucose (UA) (Negative) Urine Ketones (Negative) Urine Blood (Negative) Urine Nitrite (Negative) Urine Bilirubin (Negative) Urine Urobilinogen (<2.0) mg/dL Ur Leukocyte Esterase (Negative) Urine RBC (0-5) /hpf Urine WBC (0-5) /hpf Ur Squamous Epith Cells (0-4) /hpf Urine Bacteria (None) /hpf Urine Mucus (None) /hpf Disposition Clinical Impression: Pyelonephritis Disposition: HOME SELF-CARE Condition: Stable Instructions (If sedation given, give patient instructions): Kidney Infection (ED) Additional Instructions: Please return to the Emergency Department if symptoms worsen or any other concerns. Prescriptions: Ciprofloxacin HCl [Cipro] 500 mg PO Q12HR #20 tablet Ondansetron Odt [Zofran Odt] 4 mg PO Q8HR PRN #10 tab PRN Reason: Nausea Is patient prescribed a controlled substance at d/c from ED?: No Referrals: Willis Magana DO [Primary Care Provider] - 1-2 days Time of Disposition: 14:50
[2023-09-11 12:53] LABS: Appearance,Urine Clear (Clear); Bacteria,Urine Occasional /hpf; Bilirubin,Urine Negative (Negative); Blood,Urine Moderate (Negative); Color,Urine Yellow; Glucose,Urine (UA) Negative (Negative); Ketones,Urine Negative (Negative); Leukocyte Esterase,Urine Negative (Negative); Mucus,Urine Rare /hpf; Nitrite,Urine Positive (Negative); Protein,Urine Trace (Negative); RBC,Urine >182 /hpf (0-5); Specific Gravity,Urine 1.015 (1.001-1.035); Squamous Epithelial Cell,Urine 2 /hpf (0-4); Urobilinogen,Urine <2.0 mg/dL (<2.0); WBC,Urine 10 /hpf (0-5)
[2023-09-11] MEDS: ONDANSETRON 4 MG ODT STARTER PACK 2 TAB BTL PO STA (15:09)
[2023-09-11] MEDS: traMADol 50 MG STARTER PACK 3 TAB BTL PO STA (15:09)
[2023-09-11 15:23] VITALS: BP 185/81; PULSE 110; RESP 22
== END 2023-09-11 15:13 | disposition home or self-care (01) ==
LOC: EC 11:09
DX: N12 Tubulo-interstitial nephritis, not specified as acute or chronic (principal); J45.909 Unspecified asthma, uncomplicated; Z87.891 Personal history of nicotine dependence; Z88.5 Allergy status to narcotic agent; Z91.040 Latex allergy status; Z88.0 Allergy status to penicillin
CPT/HCPCS: 36415; 80053; 83605; 83690; 85025; 81001; 87040; 74176; 99284; 96365; 96375 ×2; 96376 ×3; 96361 ×2; J2405; J0696; S0119; J1170

== ENCOUNTER 2023-09-12 00:13 | Emergency (ER) | payer MEDICAID, OTHER ==
[2023-09-12] MEDS: HYDROmorphone 1 MG/ML 1 ML SYRINGE IVP STA (00:46)
[2023-09-12 00:49] LABS: Basophils % (A) 1 %; Eosinophils % (A) 1 %; HCT 40.5 % (34.0-46.0); Lymphocytes # (A) 1.1 k/uL (1.0-4.8); Lymphocytes % (A) 21 %; MCH 30.1 pg (25.0-35.0); MCHC 34.5 g/dL (31.0-37.0); MCV 87.3 fL (80.0-100.0); Mean Platelet Volume 7.7; Monocytes # (A) 0.3 k/uL (0-1.0); Monocytes % (A) 6 %; Neutrophils # (A) 3.9 k/uL (1.3-7.7); Neutrophils % (A) 71 %; Platelet Count 241 k/uL (150-450); RBC 4.64 m/uL (3.80-5.40); RDW 12.2 % (11.5-15.5); WBC 5.4 k/uL (3.8-10.6)
[2023-09-12] MEDS: SODIUM CHLORIDE 0.9% 2,000 ML IV ONE (00:49)
[2023-09-12] MEDS: ACETAMINOPHEN TAB 325 MG TAB PO STA (00:51)
[2023-09-12] MEDS: ONDANSETRON 4 MG/2 ML VIAL IVP STA (00:51)
[2023-09-12 01:01] LABS: ALT 17 U/L (4-34); AST 26 U/L (14-36); African American GFR (CKD) 71 (>60 ml/min/1.73 sqM); Albumin 4.4 g/dL (3.5-5.0); Alkaline Phosphatase 95 U/L (38-126); Anion Gap 10 mmol/L; Blood Urea Nitrogen 9 mg/dL (7-17); Calcium 8.9 mg/dL (8.4-10.2); Carbon Dioxide 19 mmol/L (22-30); Chloride 106 mmol/L (98-107); Glucose 130 mg/dL (74-99); Non-African American GFR(CKD) 62 (>60 ml/min/1.73 sqM); Potassium 3.8 mmol/L (3.5-5.1); Sodium 135 mmol/L (137-145); Total Bilirubin 0.5 mg/dL (0.2-1.3); Total Protein 7.2 g/dL (6.3-8.2)
[2023-09-12] MEDS ORDERED: IBUPROFEN 400 MG TAB PO PRN (01:31)
[2023-09-12] MEDS ORDERED: ACETAMINOPHEN TAB 325 MG TAB PO PRN (01:31)
[2023-09-12] MEDS ORDERED: ONDANSETRON 4 MG/2 ML VIAL IVP PRN (01:31)
[2023-09-12] MEDS ORDERED: NALOXONE 0.4 MG/ML 1 ML VIAL IV PRN (01:31)
--- NOTE | 2023-09-12 01:31 | ED ---
General Adult HPI - General Chief complaint: Back Pain/Injury Stated complaint: Kidney stone Time Seen by Provider: 09/12/23 00:20 Source: patient Mode of arrival: ambulatory Limitations: no limitations - History of Present Illness Initial comments: 48-year-old female presenting with chief complaint of flank pain. Patient was seen in our ER earlier today, states that she had the sensation of recently passing a kidney stone was experiencing right flank pain. She was determined to have a UTI, she had a normal CAT scan. She was given Rocephin and sent home on Cipro. This evening she had worsening pain that was difficult to manage at home with tramadol, as well as nausea and vomiting. She is febrile as well. She admits to headache. No chest pain or difficulty breathing. - Related Data Home Medications Medication Instructions Recorded Confirmed LORazepam [Ativan] 0.5 mg PO DAILY 12/16/22 12/16/22 QUEtiapine FUMARATE [SEROquel] 25 mg PO DAILY 12/16/22 12/16/22 Previous Rx's Medication Instructions Recorded Moxifloxacin HCl [Avelox] 400 mg PO DAILY 7 Days #7 tab 12/16/22 Ondansetron Odt [Zofran ODT] 4 mg PO Q8HR PRN #10 tab 01/08/23 traMADol HCl [Ultram] 50 mg PO Q6H PRN #20 tab 01/08/23 predniSONE [Deltasone] 20 mg PO BID 5 Days #10 tab 04/23/23 Cyclobenzaprine [Flexeril] 10 mg PO TID PRN #15 tab 07/28/23 Ciprofloxacin HCl [Cipro] 500 mg PO Q12HR #20 tablet 09/11/23 Ondansetron Odt [Zofran Odt] 4 mg PO Q8HR PRN #10 tab 09/11/23 Allergies Allergy/AdvReac Type Severity Reaction Status Date / Time codeine Allergy Rash/Hives Verified 09/12/23 00:19 Latex, Natural Rubber Allergy Anaphylaxis Verified 09/12/23 00:19 Penicillins Allergy Anaphylaxis Verified 09/12/23 00:19 Review of Systems ROS Statement: Those systems with pertinent positive or pertinent negative responses have been documented in the HPI. ROS Other: All systems not noted in ROS Statement are negative. 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 Absent: respiratory distress, wheezes, rales, rhonchi, stridor Cardiovascular Exam: Present: normal rhythm, tachycardia, normal heart sounds. Absent: systolic murmur, diastolic murmur, rubs, gallop, clicks Neurological exam: Present: alert, oriented X3 Psychiatric exam: Present: normal affect, normal mood Skin exam: Present: warm, dry Course Vital Signs 09/12/23 09/12/23 09/12/23 00:17 00:19 01:30 Temperature 100.1 F H 97.8 F Pulse Rate 140 H 127 H 111 H Respiratory 20 24 20 Rate Blood Pressure 118/79 124/79 136/76 O2 Sat by Pulse 96 93 L 95 Oximetry Medical Decision Making - Medical Decision Making Was pt. sent in by a medical professional or institution ([facility], ELECTRICAL INSPECTOR, urgent care, hospital, or longterm...) When possible be specific @ -No Did you speak to anyone other than the patient for history (EMS, parent, family, police, friend...)? What history was obtained from this source @ -No Did you review nursing and triage notes (agree or disagree)? Why? @ -I reviewed and agree with nursing and triage notes Were old charts reviewed (outside hosp., previous admission, EMS record, old EKG, old radiological studies, urgent care reports/EKG's, longterm records)? Report findings @ -Patient's ER visit from this morning is reviewed, including her earlier CAT scan Differential Diagnosis (chest pain, altered mental status, abdominal pain women, abdominal pain men, vaginal bleeding, weakness, fever, dyspnea, syncope, headache, dizziness, GI bleed, back pain, seizure, CVA, palpatations, mental health, musculoskeletal)? @ -[facility] Differential Abdominal Pain Women: Appendicitis, Cholecystitis, diverticulosis, ischemic bowel, pancreatitis, hepatitis, UTI, gastroenteritis, AAA, incarcerated hernia, bowel obstruction, constipation, inflammatory bowel, hepatitis, peptic ulcer disease, splenic infarction, perforated viscus, vulvitis, ovarian torsion, PID, kidney stone, placenta abruption... This is not meant to be an all-inclusive list EKG interpreted by me (3pts min.). @ -As above X-rays interpreted by me (1pt min.). @ -None done CT interpreted by me (1pt min.). @ -None done U/S interpreted by me (1pt. min.). @ -None done What testing was considered but not performed or refused? (CT, X-rays, U/S, labs)? Why? @ -Admission was considered given that the patient's earlier urine today the was consistent with pyelonephritis, however the patient's current urine shows no infectious process. What meds were considered but not given or refused? Why? @ -None Did you discuss the management of the patient with other professionals (professionals i.e. , PA, ELECTRICAL INSPECTOR, lab, RT, psych nurse, executive secretary social welfare, advanced practice registered nurse, teacher, worldwide chief creative officer, community case manager)? Give summary @ -No Was smoking cessation discussed for >3mins.? @ -No Was critical care preformed (if so, how long)? @ -No Were there social determinants of health that impacted care today? How? (Homelessness, low income, unemployed, alcoholism, drug addiction, transportation, low edu. Level, literacy, decrease access to med. care, assisted, rehab)? @ -No Was there de-escalation of care discussed even if they declined (Discuss DNR or withdrawal of care, Hospice)? DNR status @ -No What co-morbidities impacted this encounter? (DM, HTN, Smoking, COPD, CAD, Cancer, CVA, ARF, Chemo, Hep., AIDS, mental health diagnosis, sleep apnea, morbid obesity)? @ -None Was patient admitted / discharged? Hospital course, mention meds given and route, prescriptions, significant lab abnormalities, going to OR and other pertinent info. @ -48-year-old female presenting with chief complaint of of body pain, fever, headache. Was seen here earlier today and diagnosed with UTI. History and physical exam are conducted. Patient is febrile and tachycardic. She is given IV fluids and antipyretics as well as pain medication and antiemetics. Lab work shows no leukocytosis or anemia. BUN and creatinine are not largely changed from yesterday's values. She is positive for influenza A. Urine shows no infectious process. The initial plan was to admit the patient given her earlier urine consistent with pyelonephritis, however based on her current urine and positive influenza test, her symptoms are likely viral in nature and she will not require admission. She request discharge home. Follow-up with PCP. Report back to ER with any new or worsening symptoms. Discussed return parameters and answered all questions. Patient conveyed verbal understanding and agreed to the plan. I discussed this case in detail with my attending Dr. Valenzuela Undiagnosed new problem with uncertain prognosis? @ -No Drug Therapy requiring intensive monitoring for toxicity (Heparin, Nitro, Ins ulin, Cardizem)? @ -No Were any procedures done? @ -No Diagnosis/symptom? @ -Influenza A Acute, or Chronic, or Acute on Chronic? @ -Acute Uncomplicated (without systemic symptoms) or Complicated (systemic symptoms)? @ -Complicated Side effects of treatment? @ -No Exacerbation, Progression, or Severe Exacerbation? @ -No Poses a threat to life or bodily function? How? (Chest pain, [place], [place], pneumonia, PE, COPD, DKA, ARF, appy, cholecystitis, CVA, Diverticulitis, Homicidal, Suicidal, threat to staff... and all critical care pts) @ -Unlikely - Lab Data Result diagrams: 09/12/23 00:38 09/12/23 00:38 Lab Results 09/12/23 09/12/23 Range/Units 00:38 00:38 WBC 5.4 (3.8-10.6) k/uL RBC 4.64 (3.80-5.40) m/uL Hgb 14.0 (11.4-16.0) gm/dL Hct 40.5 (34.0-46.0) % MCV 87.3 (80.0-100.0) fL MCH 30.1 (25.0-35.0) pg MCHC 34.5 (31.0-37.0) g/dL RDW 12.2 (11.5-15.5) % Plt Count 241 (150-450) k/uL MPV 7.7 Neutrophils % 71 % Lymphocytes % 21 % Monocytes % 6 % Eosinophils % 1 % Basophils % 1 % Neutrophils # 3.9 (1.3-7.7) k/uL Lymphocytes # 1.1 (1.0-4.8) k/uL Monocytes # 0.3 (0-1.0) k/uL Eosinophils # 0.0 (0-0.7) k/uL Basophils # 0.0 (0-0.2) k/uL Sodium 135 L (137-145) mmol/L Potassium 3.8 (3.5-5.1) mmol/L Chloride 106 (98-107) mmol/L Carbon Dioxide 19 L (22-30) mmol/L Anion Gap 10 mmol/L BUN 9 (7-17) mg/dL Creatinine 1.07 H (0.52-1.04) mg/dL Est GFR (CKD-EPI)AfAm 71 (>60 ml/min/1.73 sqM) Est GFR (CKD-EPI)NonAf 62 (>60 ml/min/1.73 sqM) Glucose 130 H (74-99) mg/dL Calcium 8.9 (8.4-10.2) mg/dL Total Bilirubin 0.5 (0.2-1.3) mg/dL AST 26 (14-36) U/L ALT 17 (4-34) U/L Alkaline Phosphatase 95 (38-126) U/L Total Protein 7.2 (6.3-8.2) g/dL Albumin 4.4 (3.5-5.0) g/dL Disposition Clinical Impression: Influenza A Disposition: HOME SELF-CARE Condition: Fair Is patient prescribed a controlled substance at d/c from ED?: No Time of Disposition: 02:34
[2023-09-12] MEDS: cefTRIAXone IN SWFI 1,000 MG/10 ML SYRINGE IVP STA (01:53)
[2023-09-12 01:54] LABS: Appearance,Urine Clear (Clear); Bilirubin,Urine Negative (Negative); Blood,Urine Small (Negative); Color,Urine Yellow; Glucose,Urine (UA) Negative (Negative); Ketones,Urine Trace (Negative); Leukocyte Esterase,Urine Negative (Negative); Nitrite,Urine Negative (Negative); PH, Urine 5.5 (5.0-8.0); Protein,Urine Negative (Negative); RBC,Urine 1 /hpf (0-5); Specific Gravity,Urine 1.002 (1.001-1.035); Squamous Epithelial Cell,Urine 2 /hpf (0-4); Urobilinogen,Urine <2.0 mg/dL (<2.0); WBC,Urine 1 /hpf (0-5)
[2023-09-12] MEDS: HYDROmorphone 1 MG/ML 1 ML SYRINGE IVP PRN (01:56)
[2023-09-12] MEDS: SODIUM CHLORIDE 0.9% 1,000 ML IV SCH (02:06)
[2023-09-12 03:14] VITALS: RESP 16
[2023-09-12 03:46] VITALS: BP 115/69; PULSE 77; TEMP 98.9
== END 2023-09-12 03:33 | disposition home or self-care (01) ==
LOC: EC 00:13 → 5NMEDONC 01:33 → UNDOADMIN 01:33 → EC 03:33
DX: J10.1 Influenza due to other identified influenza virus with other respiratory manifestations (principal); J45.909 Unspecified asthma, uncomplicated; F17.200 Nicotine dependence, unspecified, uncomplicated; Z20.822 Contact with and (suspected) exposure to COVID-19; Z88.5 Allergy status to narcotic agent; Z91.040 Latex allergy status; Z88.0 Allergy status to penicillin
CPT/HCPCS: 36415; 80053; 85025; 81001; 87636; 99284; 96374; 96375 ×2; 96376; 96361 ×3; J2405; J0696; J1170